=== PATIENT | male | born 1960 | race Caucasian/White ===

== ENCOUNTER 2018-02-21 02:55 | Emergency (ER) | payer OTHER ==
[~2018-02-21 02:55] MED LIST: DUO-KAPS1 CAP PO; NO HOME MEDICATIONS
[2018-02-21 03:13] VITALS: TEMP 98.4
[2018-02-21 03:31] LABS: BASO % 0.4 % (0.0-2.0); EOS # 0.3 (0.0-0.7); EOS % 3.4 % (0-4.0); GRAN # 5.6 (1.4-6.5); GRAN % 60.3 % (42.2-75.2); HEMATOCRIT 42.6 % (42.0-52.0); HEMOGLOBIN 14.9 g/dl (13.5-18.0); LYMPH # 2.6 (1.2-3.4); LYMPH % 27.2 % (20.0-51.0); MEAN CELL VOLUME 90 fl (80.0-100.0); MEAN CORPUSCULAR HEMOGLOBIN 32 pg (27.0-31.0); MEAN CORPUSCULAR HGB CONC 35 g/dl (33.0-37.0); MEAN PLATELET VOLUME 10.2 fl (7.4-10.4); MONO # 0.8 (0.1-0.6); MONO % 8.3 % (1.7-9.3); PLATELET COUNT 187 K/mm3 (130-400); RED BLOOD COUNT 4.71 M/mm3 (4.20-5.60); REDCELL DISTRIBUTION WIDTH-CV 12.9 % (11.5-14.5)
[2018-02-21 03:44] LABS: ALANINE AMINOTRANSFERASE 31 U/L (21-72); ALBUMIN 3.8 gm/dL (3.5-5.0); ALKALINE PHOSPHATASE 101 U/L (50-136); ANION GAP 13 mmol/L (7-16); AST,SGOT 28 U/L (15-37); BILIRUBIN,TOTAL 0.4 mg/dL (0.0-1.0); BLOOD UREA NITROGEN 17 mg/dL (9-20); CALCIUM 9.2 mg/dL (8.4-10.2); CARBON DIOXIDE 25 mmol/L (22-30); CHLORIDE 106 mmol/L (98-107); CREATININE, serum 0.82 mg/dL (0.66-1.25); GLUCOSE 134 mg/dL (74-106); POTASSIUM 3.8 mmol/L (3.4-5.0); SODIUM 144 mmol/L (137-145); TOTAL PROTEIN 7.5 gm/dL (6.4-8.2)
[2018-02-21 03:58] LABS: TROPONIN-I < 0.012 ng/mL (0.000-0.034)
[2018-02-21] MEDS ORDERED: NORVASC 5MG5 MG/TAB PO (06:30)
[2018-02-21 06:38] VITALS: BP 133/89; PULSE 71
== END 2018-02-21 06:39 | disposition home or self-care (01) ==
LOC: COL.ER 02:55
PROVIDERS: Emergency Medicine
DX: R07.89 Other chest pain (principal); I10 Essential (primary) hypertension

== ENCOUNTER 2021-06-28 16:44 | Emergency (ER) | payer BC ==
[~2021-06-28] VITALS: Ht 180.3 cm; Wt 118.2 kg
[~2021-06-28 16:44] MED LIST changes: +NORVASC 5MG5 MG/TAB PO
[2021-06-28 17:28] LABS: BASO # 0.1 (0.0-0.2); BASO % 0.7 % (0.0-2.0); EOS # 0.2 (0.0-0.7); EOS % 2.3 % (0-4.0); GRAN # 5.3 (1.4-6.5); GRAN % 58.6 % (42.2-75.2); HEMATOCRIT 46.4 % (42.0-52.0); LYMPH # 2.7 (1.2-3.4); LYMPH % 29.5 % (20.0-51.0); MEAN CELL VOLUME 93 fl (80.0-100.0); MEAN CORPUSCULAR HEMOGLOBIN 32 pg (27.0-31.0); MEAN CORPUSCULAR HGB CONC 35 g/dl (33.0-37.0); MEAN PLATELET VOLUME 10.4 fl (7.4-10.4); MONO # 0.8 (0.1-0.6); MONO % 8.6 % (1.7-9.3); PLATELET COUNT 204 K/mm3 (130-400); RED BLOOD COUNT 4.99 M/mm3 (4.20-5.60); REDCELL DISTRIBUTION WIDTH-CV 12.6 % (11.5-14.5)
[2021-06-28 17:35] LABS: INR 1.1 (0.8-3.0)
[2021-06-28 17:37] LABS: ALANINE AMINOTRANSFERASE 21 U/L (4-49); ALBUMIN 4.5 gm/dL (3.5-5.0); ALKALINE PHOSPHATASE 88 U/L (50-136); ANION GAP 10 mmol/L (7-16); AST,SGOT 29 U/L (15-37); BILIRUBIN,TOTAL 0.6 mg/dL (0.0-1.0); BLOOD UREA NITROGEN 19 mg/dL (9-20); CALCIUM 9.2 mg/dL (8.4-10.2); CARBON DIOXIDE 25 mmol/L (22-30); CHLORIDE 104 mmol/L (98-107); CREATININE, serum 0.96 (0.66-1.25); GLUCOSE 103 mg/dL (74-106); SODIUM 139 mmol/L (137-145); TOTAL PROTEIN 7.8 gm/dL (6.4-8.2)
[2021-06-28 17:57] LABS: TROPONIN-I < 0.012 ng/mL (0.000-0.035)
[2021-06-28 20:14] VITALS: BP 143/78; PULSE 63; TEMP 97.8
== END 2021-06-28 20:14 | disposition home or self-care (01) ==
LOC: COL.ER 16:44
PROVIDERS: Emergency Medicine
DX: G45.9 Transient cerebral ischemic attack, unspecified (principal)
CPT/HCPCS: J7030; Q9967

== ENCOUNTER 2024-07-07 08:26 | Inpatient (IN) | payer MEDICARE ==
[2024-07-07] VITALS (10 sets, daily range): BP systolic 139–165; BP diastolic 85–115; PULSE 68–102; TEMP 97.7–98.2
[~2024-07-07] VITALS: Ht 177.8 cm; Wt 116.3 kg
[2024-07-07] MEDS ORDERED: NS Flush 10 ML SYRINGE PRN ICA (08:45)
[2024-07-07] MEDS ORDERED: 1/2 NS 1,000 ML IV SCH (08:45)
[2024-07-07] MEDS ORDERED: NS Flush 10 ML SYRINGE BID ICA SCH (09:00)
[2024-07-07] MEDS ORDERED: ELIQUIS 5MG PO (09:08)
[2024-07-07] MEDS ORDERED: HYZAAR 50-12.1 UDTAB PO (09:08)
[2024-07-07] MEDS ORDERED: GLUCOPHAGE XR500 M1 PO (09:08)
[2024-07-07] MEDS ORDERED: PREDNISONE 2.52.5 MG PO (09:09)
[2024-07-07] MEDS ORDERED: TOPROL XL 25MG25 MG PO (09:09)
[2024-07-07] MEDS ORDERED: PREDNISONE 5MG5 MG PO (09:09)
[2024-07-07] MEDS ORDERED: LR 1,000 ML IV SCH (09:15)
[2024-07-07 09:19] LABS: HEMATOCRIT 40.3 % (42.0-52.0); MEAN CELL VOLUME 94 fl (80.0-100.0); MEAN CORPUSCULAR HEMOGLOBIN 33 pg (27-31); MEAN CORPUSCULAR HGB CONC 35 g/dl (33.0-37.0); MEAN PLATELET VOLUME 10.8 fl (7.4-10.4); PLATELET COUNT 193 K/mm3 (130-400); RED BLOOD COUNT 4.31 M/mm3 (4.20-5.60); REDCELL DISTRIBUTION WIDTH-CV 12.1 % (11.5-14.5)
[2024-07-07 09:30] LABS: INR 1.6 (0.8-3.0); PROTHROMBIN TIME 17.5 SECONDS (9.7-12.8)
[2024-07-07 09:32] LABS: PARTIAL THROMBOPLASTIN TIME 32.1 SECONDS (26.0-37.0)
[2024-07-07 09:33] LABS: CALCIUM 9.4 mg/dL (8.4-10.2); CREATININE, serum 0.83 mg/dL (0.72-1.25); POTASSIUM 3.8 mEq/L (3.5-4.5)
[2024-07-07] MEDS ORDERED: MAGNESIUM500 MG PO (09:37)
[2024-07-07] MEDS ORDERED: B COMPLEX & B121 TAB PO (09:41)
[2024-07-07] MEDS ORDERED: CRANBERRY FRUI425 MG PO (09:41)
[2024-07-07] MEDS ORDERED: PROBIOTIC BLEN1 EACH PO (09:42)
[2024-07-07] MEDS ORDERED: D3-5050000 IU PO (09:42)
[2024-07-07] MEDS ORDERED: Lidocaine PF 2% (20 MG/ML) 5 ML VIAL ONE (09:50)
[2024-07-07 09:54] LABS: THYROID STIMULATING HORMONE 1.92 uIU/mL (0.350-4.940)
[2024-07-07 10:16] LABS: MAGNESIUM 1.8 mg/dL (1.6-2.6)
--- NOTE | 2024-07-07 12:15 | NUR ---
arrived on unit per WC and assisted into bed, denies needs at this time
--- NOTE | 2024-07-07 12:29 | NUR ---
REPORT GIVEN TO [employer]. PT ASSISTED TO ROOM 358 VIA WHEELCHAIR. PT FREE FROM ACUTE CONCERNS AND COMPLAINTS UPON TRANSFER. PT CONNECTED TO [employer] UPON TRANSFER.
[2024-07-07] MEDS ORDERED: Temazepam 15 MG CAP PO PRN (13:00)
[2024-07-07] MEDS ORDERED: Docusate Sodium 100 MG CAP PO PRN (13:15)
--- NOTE | 2024-07-07 13:20 | NUR ---
admission assessment completed, see intervention for irwin rinfo
[2024-07-07] MEDS ORDERED: Losartan 50 MG,hydroCHLOROthiazide 12.5 MG PO SCH (13:30)
[2024-07-07] MEDS ORDERED: predniSONE 5 MG TAB PO SCH (13:30)
--- NOTE | 2024-07-07 13:40 | NUR ---
had lunch and tolerated well, given meds and takes without difficulty
--- NOTE | 2024-07-07 14:29 | NUR ---
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 He reports to live with his , Pilar [phone] in [place]. He sees Dr. Metzger for PCP needs and obtains medications from [facility] with no difficulties. He confirmed to have Medicare A/B and AAR insurance. Pt is independent with ADLS and uses no DME. He does not have a DPOA-HC and was open to complete one with his . Copy provided. Discharge Plan: home
--- NOTE | 2024-07-07 15:40 | NUR ---
up in chair and denies needs
[2024-07-07] MEDS ORDERED: metFORMIN 500 MG TAB PO SCH (17:00)
--- NOTE | 2024-07-07 18:10 | NUR ---
had supper and tolerated well, denies needs
--- NOTE | 2024-07-07 19:08 | NUR ---
bedside shift report given to NERI Patino
--- NOTE | 2024-07-07 20:00 | NUR ---
PT SITTING UP IN CHAIR.
[2024-07-07] MEDS ORDERED: Apixaban 5 MG TABLET PO SCH (21:00)
[2024-07-07] MEDS ORDERED: predniSONE 2.5 MG TAB PO SCH (21:00)
[2024-07-08] VITALS (12 sets, daily range): BP systolic 134–154; BP diastolic 8–90; PULSE 57–68; TEMP 97.6–98.5
--- NOTE | 2024-07-08 02:10 | NUR ---
DENIES CHEST PAIN, PRESSURE AND SOA.
[2024-07-08 06:40] LABS: BASO % 0.4 % (0.0-2.0); EOS # 0.1 K/mm3 (0.0-0.7); EOS % 1.1 % (0.0-4.0); GRAN # 5.7 K/mm3 (1.4-6.5); GRAN % 62.1 % (42.2-75.2); LYMPH # 2.6 K/mm3 (1.2-3.4); LYMPH % 28.3 % (20.0-51.0); MEAN CELL VOLUME 97 fl (80.0-100.0); MEAN CORPUSCULAR HGB CONC 33 g/dl (33.0-37.0); MEAN PLATELET VOLUME 10.7 fl (7.4-10.4); MONO # 0.7 K/mm3 (0.1-0.6); MONO % 7.8 % (1.7-9.3); PLATELET COUNT 168 K/mm3 (130-400); RED BLOOD COUNT 3.74 M/mm3 (4.20-5.60); REDCELL DISTRIBUTION WIDTH-CV 12.3 % (11.5-14.5)
[2024-07-08 06:44] LABS: MEAN CORPUSCULAR HEMOGLOBIN 32 pg (27-31)
[2024-07-08 06:45] LABS: HEMATOCRIT 36.3 % (42.0-52.0)
[2024-07-08 07:00] LABS: CALCIUM 9.4 mg/dL (8.4-10.2); CREATININE, serum 0.8 mg/dL (0.72-1.25); POTASSIUM 4.1 mEq/L (3.5-4.5)
[2024-07-08 07:21] LABS: MAGNESIUM 1.9 mg/dL (1.6-2.6)
--- NOTE | 2024-07-08 08:00 | NUR ---
Patient sitting up in bed eating breakfast. A&Ox4. VSS. IV CDI. Denies pain and discomfort. Call light within reach
[2024-07-08] MEDS ORDERED: Magnesium Oxide 400 MG TAB PO SCH (09:00)
[2024-07-08] MEDS ORDERED: Cholecalciferol (Vit D3) 125 MCG (5,000 Units) Capsule PO SCH ×2 (09:00)
[2024-07-08] MEDS ORDERED: Losartan 50 MG TAB PO ONE (11:45)
--- NOTE | 2024-07-08 15:17 | NUR ---
SW received a call from pt reporting he completed the DPOA-HC and needed witnessed. BRIDGETTE and NERI Rivera witnessed this. Copies and original provided. 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
--- NOTE | 2024-07-08 21:19 | NUR ---
PATIENT SITTING UP WATCHING TV. DENIES ANY CHEST PAIN, PALPITATIONS, SHORTNESS OF BREATH. CALL LIGHT WITHIN REACH.
[2024-07-09 03:17] VITALS: BP 129/72; PULSE 60; TEMP 97.8
[2024-07-09 04:08] VITALS: BP_SYST 129
[2024-07-09 06:58] LABS: BASO # 0.1 K/mm3 (0.0-0.2); BASO % 0.6 % (0.0-2.0); EOS # 0.1 K/mm3 (0.0-0.7); EOS % 1.1 % (0.0-4.0); GRAN # 5.4 K/mm3 (1.4-6.5); GRAN % 62.1 % (42.2-75.2); HEMATOCRIT 37.1 % (42.0-52.0); HEMOGLOBIN 12.8 g/dl (13.5-18.0); LYMPH # 2.4 K/mm3 (1.2-3.4); LYMPH % 27.7 % (20.0-51.0); MEAN CELL VOLUME 95 fl (80.0-100.0); MEAN CORPUSCULAR HEMOGLOBIN 33 pg (27-31); MEAN CORPUSCULAR HGB CONC 35 g/dl (33.0-37.0); MEAN PLATELET VOLUME 10.9 fl (7.4-10.4); MONO # 0.7 K/mm3 (0.1-0.6); PLATELET COUNT 176 K/mm3 (130-400); RED BLOOD COUNT 3.91 M/mm3 (4.20-5.60); REDCELL DISTRIBUTION WIDTH-CV 12.2 % (11.5-14.5)
[2024-07-09 07:02] VITALS: BP 131/75; PULSE 51; TEMP 97.8
[2024-07-09 07:48] LABS: CALCIUM 9.5 mg/dL (8.4-10.2); CREATININE, serum 0.86 mg/dL (0.72-1.25); MAGNESIUM 1.9 mg/dL (1.6-2.6); POTASSIUM 3.9 mEq/L (3.5-4.5)
[2024-07-09] MEDS ORDERED: HYDROCHLOROTHIAZIDE 12.5 MG PO SCH (09:00)
[2024-07-09] MEDS ORDERED: LOSARTAN 100 MG PO SCH (09:00)
[2024-07-09 09:20] VITALS: BP_SYST 131
--- NOTE | 2024-07-09 10:27 | NUR ---
Pt A&Ox4. Patient sitting up in chair at bedside eating breakfast. Pt reports chronic shoulder pain level 3/10. IV clean, dry, intact and saline locked. Pt denies any other complaints at the moment but wants to know when he'll discharge. Call us within reach.
[2024-07-09 11:15] VITALS: BP 129/76; PULSE 57; TEMP 98.2
[2024-07-09 13:10] VITALS: BP_SYST 129
[2024-07-09] MEDS ORDERED: BETAPACE 80MG80 MG PO (13:25)
[2024-07-09] MEDS ORDERED: HYZAAR 12.5 MG-1 TAB PO (13:26)
--- NOTE | 2024-07-09 14:56 | NUR ---
discharge instructions reviewed and verbalized understanding. IV D/C'd and tele D/C'd. Pt escorted to private vehicle accompained by and discharged to home. n
--- NOTE | 2024-07-09 16:00 | NUR ---
Agree with Talita Goddard, lotus notes administrator and notes.
== END 2024-07-09 14:59 | disposition home or self-care (01) | DRG 310 ==
LOC: COL.CAR 08:26 → MEDICAL 12:15 → COL.CAR 12:42 → MEDICAL 21:00
PROVIDERS: ADMIT Internal Medicine Cardiovascular Disease
PROC: 5A2204Z Restoration of Cardiac Rhythm, Single (ICD-10-PCS; principal; 2024-07-08)
DX: I48.0 Paroxysmal atrial fibrillation (principal); I08.0 Rheumatic disorders of both mitral and aortic valves; Z88.8 Allergy status to other drugs, medicaments and biological substances
CPT/HCPCS: J2704; J7512